=== PATIENT | female | born 1995 | race Two or more races ===

== ENCOUNTER 2020-08-18 19:15 | Emergency (ER) | payer MEDICAID, OTHER ==
[~2020-08-18] VITALS: Ht 160 cm; Wt 90.7 kg
[2020-08-18 21:19] LABS: Basophils # (auto) 0 10 ^3/uL (0-0.2); Basophils % (auto) 0.1 % (0.0-2.0); Eosinophils # (auto) 0 10 ^3/uL (0-0.8); Hematocrit 39.3 % (36.0-46.0); Hemoglobin 13.3 g/dL (12.2-16.2); Lymphocytes # (auto) 0.5 10 ^3/uL (0.4-5.4); Lymphocytes % (auto) 4.3 % (10.0-50.0); Mean Corpuscular Hemoglobin 30.1 pg (28.0-32.0); Mean Corpuscular Hgb Conc. 33.8 g/dL (32.0-36.0); Mean Corpuscular Volume 89.3 fL (80.0-100.0); Monocytes # (auto) 0.5 10 ^3/uL (0-1.3); Monocytes % (auto) 4.6 % (0.0-12.0); Neutrophils # (auto) 10.7 10 ^3/uL (1.6-8.6); Platelet Count (auto) 220 10^3/uL (140-450); Red Cell Distribution Width 13.6 % (11.8-14.3); White Blood Cell 11.7 10^3/uL (4.4-10.8)
[2020-08-18 21:26] LABS: Potassium 3.7 mmol/L (3.5-5.1)
[2020-08-18 21:33] LABS: Albumin 3.6 g/dL (3.4-5.0); BUN/Creatinine Ratio 14.1; Bilirubin, Total 0.7 mg/dL (0.2-1.0); Calcium 8.7 mg/dL (8.5-10.1); Total Protein 7.7 g/dL (6.4-8.2)
[2020-08-18] MEDS ORDERED: KETOROLAC TROMETH 30 MG/ML 1ML VIAL IV ONE (22:45)
[2020-08-18] MEDS ORDERED: PROMETHAZINE HCL 25 MG/ML 1ML IV ONE (22:45)
[2020-08-18 23:43] LABS: Urine Bacteria FEW /hpf (None Seen); Urine Blood TRACE /uL (Negative); Urine Mucus FEW (None Seen); Urine Specific Gravity 1.023 (1.001-1.035); Urine WBC 5 /hpf (0 - 5)
[2020-08-18 23:55] LABS: Alcohol, Urine < 3.0 mg/dL (0-10); Amphetamine Screen, Urine NEGATIVE (NEGATIVE); Barbiturate Scree,Urine NEGATIVE (NEGATIVE); Benzodiazephine Screen, Urine NEGATIVE (NEGATIVE); Cannabinoid Screen, Urine NEGATIVE (NEGATIVE); Cocaine Screen, Urine NEGATIVE (NEGATIVE); Opiate Scree,Urine NEGATIVE (NEGATIVE); Phencyclidine Screen, Urine NEGATIVE (NEGATIVE)
[2020-08-19] MEDS ORDERED: SODIUM CHLORIDE 0.9% 1,000 ML IV ONE (00:15)
[2020-08-19] MEDS ORDERED: cefTRIAXone SOD 1,000 MG VL IM ONE (00:15)
[2020-08-19] MEDS ORDERED: cefTRIAXone 1GM/50ML D5W 50 ML IV ONE (00:30)
[2020-08-19 02:32] VITALS: BP 98/54
== END 2020-08-19 02:39 | disposition home or self-care (01) ==
LOC: EDBD 19:15 → ER 19:21
DX: N39.0 Urinary tract infection, site not specified (principal); E86.0 Dehydration; R10.2 Pelvic and perineal pain; F32.9 Major depressive disorder, single episode, unspecified
CPT/HCPCS: 36415; 76856; 80053; 80307; 81001; 83690; 84702; 85025; 96365; 96366; 96375; 99284; J0696; J1885; J2550; J7030